=== PATIENT | male | born 1945 | race Caucasian/White ===

== ENCOUNTER 2016-08-19 15:14 | Emergency (ER) | payer MEDICARE, OTHER ==
[~2016-08-19] VITALS: Ht 175.3 cm; Wt 90.0 kg
[2016-08-19 15:24] VITALS: BP 163/95; PULSE 58; TEMP 97.8
[2016-08-19] MEDS ORDERED: PRILOSEC 20MG20 MG (15:56)
[2016-08-19] MEDS ORDERED: GLUCOPHAGE500 MG/TAB PO (15:56)
[2016-08-19] MEDS ORDERED: VIVLODEX5 MG PO (15:56)
[2016-08-19] MEDS ORDERED: COZAAR 25MG25 MG/TAB (15:56)
[2016-08-19] MEDS ORDERED: NORVASC2.5 MG PO (15:56)
[2016-08-19] MEDS ORDERED: ALLEGRA ALLERG180 MG (15:56)
== END 2016-08-19 16:40 | disposition home or self-care (01) ==
LOC: COL.ER 15:14
DX: S63.690A Other sprain of right index finger, initial encounter (principal); S63.692A Other sprain of right middle finger, initial encounter; W19.XXXA Unspecified fall, initial encounter; Y92.59 Other trade areas as the place of occurrence of the external cause; I10 Essential (primary) hypertension; E11.9 Type 2 diabetes mellitus without complications; Z79.84 Long term (current) use of oral hypoglycemic drugs